=== PATIENT | male | born 1975 | race Caucasian/White ===

== ENCOUNTER 2023-08-16 09:09 | Emergency (ER) | payer OTHER, SELFPAY ==
[2023-08-16 09:11] VITALS: BP 137/80
--- NOTE | 2023-08-16 10:47 | ED.GENMED ---
History of Present Illness
General
Chief Complaint: Allergic Reaction
Source: patient
Time Seen by Provider: 08/16/23 10:16
Travel History
Have you had any contact with someone who has COVID-19?: No
Do you have any symptoms of coronavirus? Fever > 100 degrees, chills, cough, shortness of breath, sore throat, loss of taste or smell, muscle aches, or headache?: No
History of Present Illness
History of Present Illness:
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
taking since his CVA 1 year ago that was diagnosed at [facility]. Patient states that this has been increased to 80 mg over time and he is unsure as to why as he has had a change in his diet and exercise which he feels should be controlling his
cholesterol better and overall after doing some research feels that his symptoms are related to statin medication. Patient notes that he has seen his primary care doctor about this and has relayed these concerns however he states he feels that his
primary care physician is not hearing him and is merely doing an orthopedic workup and he does not feel that there is an orthopedic cause to his symptoms. Patient went to [facility] the other day and had some blood work done and was concerned
some mild LFT evaluation. Overall he states he is not very happy with his care with his primary care provider through [facility] and is hoping to switch his care to a primary care through [facility] and wants some further advice about what to do
about his statin medication. He also notes that his primary care office told him that he was being given a new prescription to be taken off the Lipitor and started on Crestor 2 days ago but states he did not receive a call from his pharmacy
notifying him that his medication was ready.
Past History
Past History
ED Past Medical History: CVA and Hypercholesterolemia
ED Past Surgical History: Brain
Social History
Tobacco: Non-smoker
Alcohol: None
Drug: None
Personal: Single
Living: alone
Employment: Not employed
Review of Systems
Review of Systems
All Other Systems: ROS reviewed and negative except as documented in HPI and ROS
Phy Exam
Physical Exam
Physical Exam:
GENERAL: Alert , in no apparent distress
EYE: conjunctiva clear
NECK: Supple
ENT: o/p clr, mmm.
CARDIAC: Regular rate and rhythm
LUNGS: Clear breath sounds bilaterally, no acute respiratory distress, no wheezes/rales/rhonchi
NEUROLOGICAL: Alert and oriented
SKIN: Warm and dry, skin intact.
MUSCULOSKELETAL: well perfused.
PSYCH: Normal and appropriate interaction.
Scores
Heart Failure Risk
Heart Failure Risk Score: Not Applicable
Heart Score for Chest Pain Patients
STEMI patient?: Not applicable
Withdrawal Assessment of Alcohol
Withdrawal Assessment Completed?: Not applicable
Course
Orders/Labs/Results
Orders:
08/16/23 10:16
08/16/23 10:16
Vital Signs
Initial and Last Documented VS:
Initial Vital Signs
Temp Pulse Resp BP Pulse Ox
97.2 F 60 16 137/80 98
08/16/23 09:11 08/16/23 09:11 08/16/23 09:11 08/16/23 09:11 08/16/23 09:11
Last Documented Vital Signs
Temp Pulse Resp BP Pulse Ox
97.2 F 60 16 137/80 98
08/16/23 09:11 08/16/23 09:11 08/16/23 09:11 08/16/23 09:11 08/16/23 09:11
MDM/Problems Addressed
Differential Diagnosis Includes:
Statin induced myalgia, musculoskeletal etiology, tendinitis
MDM/Problems Addressed:
47-year-old male presenting to the emergency department for evaluation of some myalgias that has been occurring over the last few months. Patient unhappy with primary care's workup and was seen at [facility] 2 days ago and came to
the emergency department here today for another opinion. Overall I did discuss with patient that it is certainly possible his mild could potentially be coming from his statin but there is no specific test in the emergency department for this. We
discussed giving the Crestor that he was newly prescribed a chance to see if this might help his symptoms. I did offer patient a new set of labs including a CPK however he declines this. Patient was also notified that I would be notifying her
primary care request hotline to help him obtain a primary care provider through the [facility] [employer] Patient was overall happy with this plan and felt comfortable being discharged home. He is aware of return precautions emergency
Chronic conditions affecting care: Other (Hypercholesterolemia)
*Pulse Oximetry
Patient hypoxic: no
*Critical Care Note
Total Time (30-74mins, 75-104mins- exclusive of procedures): Not Applicable
ED Attending Note
-
Portions of this chart may have been created with voice recognition software.� Occasional wrong word or��sound alike� substitutions may have occurred due to the inherent limitations of voice recognition software.
Discharge Plan
Departure
Patient Disposition: Home (Routine Discharge)
Date of Disposition: 08/16/23
Time of Disposition: 10:47
Patient with high blood pressure during this ER visit?: No
Discharge Problem:
Myalgia
Instructions: High cholesterol
Interventions
Interventions:
*Risk Screen - Suicide Last Done: 08/16/23 11:01
*General Assessment Last Done: 08/16/23 11:01
*Neglect/Abuse Screening Last Done: 08/16/23 11:01
*ED COVID-19 Vaccine History Last Done: 08/16/23 09:11
*Nursing Disposition Last Done: 08/16/23 11:01
ED- Cardiac Assessment Last Done: 08/16/23 11:01
ED- Pulmonary Assessment Last Done: 08/16/23 11:01
ED-Skin Assessment Last Done: 08/16/23 11:01
Discharge Date and Time
Discharge Date/Time: 08/16/23 11:02
Print Language: ARMENIAN
== END 2023-08-16 11:02 | disposition home or self-care (01) ==
LOC: EMR 09:09
PROVIDERS: EMERGENCY PHYSICIAN Emergency Medicine; FAMILY PHYSICIAN Internal Medicine
DX: M79.10 Myalgia, unspecified site (principal); E78.00 Pure hypercholesterolemia, unspecified; Z86.73 Personal history of transient ischemic attack (TIA), and cerebral infarction without residual deficits
CPT/HCPCS: 99283